=== PATIENT | male | born 1955 | race Caucasian/White ===

== ENCOUNTER 2016-10-01 11:38 | Emergency (ER) | payer OTHER ==
[2016-10-01 12:13] VITALS: BP 158/70
--- NOTE | 2016-10-01 12:37 | EDM.PDOC ---
ED HPI ENT - General Chief Complaint: ENT Problem Stated Complaint: LEFT EAR IS BLEEDING Time Seen by Provider: 10/01/16 12:20 Source: Reports: Patient, Family History Limitations: Reports: No limitations - History of Present Illness INITIAL COMMENTS - FREE TEXT/NARRATIVE: 61-year-old male woke up this morning with blood around the left ear. He placed a Q-tip into the ear and obtained some fresh blood but it was nontender. He has been wearing CPAP the last 2 nights which has "popped" his ears at times but there was no pain. He is on Coumadin which concerned them that the bleeding may not stop. Location: Reports: left Ear Quality: Reports: Other (Bleeding only, no symptoms) Associated symptoms: Reports: denies other symptoms - Related Data Allergies/ADRs: Allergies Allergy/AdvReac Type Severity Reaction Status Date / Time No Known Allergies Allergy Verified 10/01/16 11:57 Home Meds: Home Meds Acetaminophen [Tylenol Extra Strength] 500 mg PO Q3H PRN 10/01/16 [History] Allopurinol [Zyloprim] 300 mg PO DAILY 10/01/16 [History] Amoxicillin 500 mg PO ONCALL PRN 10/01/16 [History] Aspirin [Halfprin] 81 mg PO DAILY 10/01/16 [History] Finasteride 5 mg PO DAILY 10/01/16 [History] Gabapentin [Neurontin] 300 mg PO BEDTIME 10/01/16 [History] Lisinopril 2.5 mg PO DAILY 10/01/16 [History] Simvastatin [Zocor] 20 mg PO BEDTIME 10/01/16 [History] Warfarin [Coumadin] 5 mg PO DAILY 10/01/16 [History] traMADol [Ultram] 50 mg PO QID PRN 10/01/16 [History] Past Medical History Cardiovascular History: Reports: Hypertension, Other (see below) Other Cardiovascular History: pericarditis Gastrointestinal History: Reports: None Genitourinary History: Reports: Other (see below) Other Genitourinary History: bladder cancer Musculoskeletal History: Reports: Osteoarthritis Neurological History: Reports: Migraines Oncologic (Cancer) History: Reports: Bladder, Other (see below) Other Oncologic History: testicular - Past Surgical History Cardiovascular Surgical History: Reports: Valve replacement GI Surgical History: Reports: Appendectomy Male Surgical History: Reports: Other (see below) Other Male Surgeries/Procedures: scrapped/burned off CA from bladder Neurological Surgical History: Reports: None Musculoskeletal Surgical History: Reports: Other (see below) Other Musculoskeletal Surgeries/Procedures:: fuzed hip Oncologic Surgical History: Reports: Other (see below) Other Oncologic Surgeries/Procedures: chemo/radiation/removal of right testical. Dermatological Surgical History: Reports: None Social & Family History - Tobacco Use Smoking Status *Q: Never Smoker Second Hand Smoke Exposure: No - Caffeine Use Caffeine Use: Reports: Coffee, Soda, Tea - Recreational Drug Use Recreational Drug Use: No ED ROS ENT - Review of Systems Review Of Systems: See Below Constitutional: Denies: fever, chills Respiratory: Denies: shortness of breath GI/Abdominal: Denies: Nausea, Vomiting ED EXAM, ENT - Physical Exam Exam: See Below Exam Limited By: No limitations General Appearance: alert, no apparent distress Ears: normal TMs, canal blood (He has a small amount of blood in the left ear canal along with a very superficial tear of the superior aspect of the epidermis of the canal. There is no pain with movement of the auricle and the tympanic membrane looks normal) Course - Vital Signs Last Recorded V/S: Last Vital Signs Temp 98.9 F 10/01/16 11:53 Pulse 75 10/01/16 11:53 Resp 16 10/01/16 11:53 BP 158/70 H 10/01/16 11:53 Pulse Ox 0 L 10/01/16 11:53 - Re-Assessments/Exams Free Text/Narrative Re-Assessment/Exam: 10/01/16 12:34 Reassured the patient that the bleeding is coming from the ear canal, not tympanic membrane or middle ear. Patient is going to keep the ear canal clean and moist and recheck with his primary doctor when home later this week. Departure - Departure Time of Disposition: 12:55 Disposition: Home, Self-Care 01 Condition: good Clinical Impression: Bleeding from left ear Referrals: PCP,None [Primary Care Provider] - Forms: ED Department Discharge Care Plan Goals: Keep ear clean until recheck in a few days. Return sooner if worsening or concerns.
== END 2016-10-01 12:55 | disposition home or self-care (01) ==
LOC: JP.ED 11:38
DX: H92.22 Otorrhagia, left ear (principal); I10 Essential (primary) hypertension; Z85.51 Personal history of malignant neoplasm of bladder; Z90.49 Acquired absence of other specified parts of digestive tract; Z98.890 Other specified postprocedural states; Z79.01 Long term (current) use of anticoagulants; Z79.82 Long term (current) use of aspirin; Z79.899 Other long term (current) drug therapy
CPT/HCPCS: 99282; 99283